=== PATIENT | male | born 1965 | race Caucasian/White ===

== ENCOUNTER 2020-04-23 21:05 | Inpatient (IN) ==
[2020-04-23] MEDS ORDERED: Aspirin 325 MG TABLET PO ONE (21:19)
[2020-04-23 21:31] LABS: Basophils # 0.1 K/mcL (0.0-0.2); Basophils % 0.7 %; Eosinophils # 0.5 K/mcL (0.0-0.6); Eosinophils % 6.3 %; Hematocrit 42.6 % (37.5-50.1); Immature Granulocytes % 0.2 % (0-4); Lymphocytes # 1.9 K/mcL (0.6-4.6); Lymphocytes % 22.6 %; Mean Corpuscular HGB Conc 32.9 g/dL (31.6-35.5); Mean Corpuscular Hemoglobin 30.2 pg (28.0-33.3); Mean Platelet Volume 9.3 fL (9.4-12.4); Monocytes # 0.7 K/mcL (0.0-1.3); Monocytes % 8.8 %; Neutrophils # 5.1 K/mcL (1.6-8.9); Platelet Count 251 K/mcL (140-400); Red Blood Count 4.63 M/mcL (4.19-5.50); Red Cell Distribution Width 15.6 % (11.5-14.5); Segmented Neutrophils % 61.4 %; White Blood Count 8.3 K/mcL (4.3-11.1)
[2020-04-23 21:48] LABS: BUN/Creatinine Ratio 12 (6-26); Blood Urea Nitrogen 12 mg/dL (6-20); Calcium 9.3 mg/dL (8.6-10.3); Carbon Dioxide 29 mEq/L (23-29); Chloride 97 mEq/L (98-107); Ethanol < 10 mg/dL (Less than 10); Glucose 95 mg/dL (70-105); Osmolality,Calculated 272 (280-300); Potassium 4.3 mEq/L (3.5-5.1); Sodium 131 mEq/L (136-145); eGFR For African Americans > 60 (> 60); eGFR For Non-African Americans > 60 (> 60)
[2020-04-23 21:51] LABS: Troponin I 0.05 ng/mL (< 0.04)
[2020-04-23] MEDS ORDERED: Isovue-370 500 ML BOTTLE IVP ONE (21:51)
[2020-04-23 22:32] LABS: Amphetamine Screen,Urine Negative ng/mL (Cutoff=1000); Barbiturate Screen,Urine Negative ng/mL (Cutoff=200); Benzodiazepines Screen,Urine Negative ng/mL (Cutoff=200); Cannabinoid Screen,Urine Positive ng/mL (Cutoff = 50); Cocaine Screen,Urine Negative ng/mL (Cutoff= 300); Opiate Screen,Urine Negative ng/mL (Cutoff=300); Phencyclidine Screen,Urine Negative ng/mL (Cutoff=25)
[2020-04-23] MEDS ORDERED: Naloxone 0.4 MG/ML INJ IVP PRN (23:23)
[2020-04-23] MEDS ORDERED: Acetaminophen 325 MG TABLET PO PRN (23:23)
[2020-04-23] MEDS ORDERED: Ondansetron 4 MG/2 ML VIAL IVP PRN (23:23)
[2020-04-23] MEDS ORDERED: Perflutren Lipid Microsphere 1.3 ML in 0.9 % Sodium Chloride 8.7 ML IVP PRN (23:26)
[2020-04-24] MEDS ORDERED: Nitroglycerin 0.4 MG TAB.SUBL SL PRN ×2 (00:14→00:41)
[2020-04-24] MEDS ORDERED: Ipratropium/Albuterol Neb 3 ML IH PRN (00:34)
[2020-04-24 03:50] LABS: Basophils # 0.1 K/mcL (0.0-0.2); Basophils % 0.9 %; Eosinophils # 0.6 K/mcL (0.0-0.6); Eosinophils % 9.1 %; Hemoglobin 13.7 g/dL (12.9-16.9); Immature Granulocytes % 0.2 % (0-4); Lymphocytes # 1.6 K/mcL (0.6-4.6); Lymphocytes % 25.3 %; Mean Corpuscular HGB Conc 33.4 g/dL (31.6-35.5); Mean Corpuscular Volume 92.8 fL (83.0-100.0); Mean Platelet Volume 9.3 fL (9.4-12.4); Monocytes # 0.5 K/mcL (0.0-1.3); Monocytes % 8.2 %; Neutrophils # 3.6 K/mcL (1.6-8.9); Platelet Count 220 K/mcL (140-400); Red Blood Count 4.42 M/mcL (4.19-5.50); Red Cell Distribution Width 15.6 % (11.5-14.5); Segmented Neutrophils % 56.3 %; White Blood Count 6.4 K/mcL (4.3-11.1)
[2020-04-24 04:13] LABS: BUN/Creatinine Ratio 15 (6-26); Blood Urea Nitrogen 11 mg/dL (6-20); Calcium 8.9 mg/dL (8.6-10.3); Carbon Dioxide 27 mEq/L (23-29); Chloride 100 mEq/L (98-107); Glucose 86 mg/dL (70-105); Magnesium 2.2 mg/dL (1.6-2.6); Osmolality,Calculated 275 (280-300); Potassium 4.1 mEq/L (3.5-5.1); Sodium 133 mEq/L (136-145); eGFR For African Americans > 60 (> 60); eGFR For Non-African Americans > 60 (> 60)
[2020-04-24] MEDS ORDERED: *HR* Heparin 5,000 UNIT/ML VIAL IVP PRN (04:51)
[2020-04-24] MEDS ORDERED: *HR* Heparin 5,000 UNIT/ML VIAL IVP ONE (04:51)
[2020-04-24 05:03] LABS: Hematocrit 40.8 % (37.5-50.1); Hemoglobin 13.7 g/dL (12.9-16.9); Mean Corpuscular HGB Conc 33.6 g/dL (31.6-35.5); Mean Corpuscular Hemoglobin 30.4 pg (28.0-33.3); Mean Corpuscular Volume 90.7 fL (83.0-100.0); Mean Platelet Volume 9.3 fL (9.4-12.4); Platelet Count 230 K/mcL (140-400); Red Cell Distribution Width 15.8 % (11.5-14.5); White Blood Count 6.4 K/mcL (4.3-11.1)
[2020-04-24 05:22] LABS: INR 1.1; Prothrombin Time 13.2 Seconds (9.4-12.1)
[2020-04-24 05:23] LABS: Heparin anti-factor XA UFH < 0.04 IU/mL (0.30-0.70)
[2020-04-24] MEDS: Heparin 25,000UNIT/250ML 1/2NS 25,000 UNIT/250 ML IV.SOLN IVC SCH (05:53)
[2020-04-24] MEDS ORDERED: *HR* Heparin 5,000 UNIT/ML VIAL SQ SCH (06:00)
[2020-04-24] MEDS: Finasteride 5 MG TABLET PO SCH (09:05)
[2020-04-24] MEDS: Aspirin 81 MG TAB.CHEW PO SCH (12:14)
[2020-04-24] MEDS: Methadone Oral Concentrate 50 MG/5 ML UDC PO SCH (12:14)
[2020-04-24] MEDS: Furosemide 20 MG/2 ML VIAL IVP SCH ×2 (12:14→18:08)
[2020-04-24] MEDS: predniSONE 20 MG TABLET PO SCH (18:09)
[2020-04-24] MEDS: Doxycycline 100 MG in 0.9 % Sodium Chloride Mini Bag 100 ML IVPB SCH (18:09)
[2020-04-24] MEDS: *HR* Heparin 5,000 UNIT/ML VIAL IVP PRN (18:54)
[2020-04-24] MEDS: Budesonide/Formoterol 160/4.5 1 PUFF INH IH SCH (19:26)
[2020-04-24] MEDS: Gabapentin 300 MG CAPSULE PO SCH (22:25)
[2020-04-25 00:37] LABS: Alanine Aminotransferase 13 Units/L (7-52); Albumin 3.7 g/dL (3.5-5.7); Albumin/Globulin Ratio 0.9 (1.1-2.2); Alkaline Phosphatase 126 Units/L (34-104); Aspartate Amino Transferase 17 Units/L (13-39); BUN/Creatinine Ratio 14 (6-26); Bilirubin,Direct 0.1 mg/dL (0.0-0.2); Bilirubin,Indirect 0.4 mg/dL (0.0-1.0); Bilirubin,Total 0.5 mg/dL (0.3-1.0); Blood Urea Nitrogen 12 mg/dL (6-20); Calcium 9.3 mg/dL (8.6-10.3); Carbon Dioxide 27 mEq/L (23-29); Chloride 93 mEq/L (98-107); Globulin 3.9 g/dL (2.4-3.5); Glucose 239 mg/dL (70-105); Magnesium 1.8 mg/dL (1.6-2.6); Osmolality,Calculated 274 (280-300); Potassium 4.2 mEq/L (3.5-5.1); Sodium 128 mEq/L (136-145); Total Protein 7.6 g/dL (6.4-8.9); eGFR For African Americans > 60 (> 60); eGFR For Non-African Americans > 60 (> 60)
[2020-04-25 00:38] LABS: Basophils % 0.3 %; Eosinophils % 0.6 %; Hematocrit 45.6 % (37.5-50.1); Immature Granulocytes % 0.1 % (0-4); Lymphocytes # 0.5 K/mcL (0.6-4.6); Lymphocytes % 7.9 %; Mean Corpuscular HGB Conc 32.9 g/dL (31.6-35.5); Mean Corpuscular Hemoglobin 29.9 pg (28.0-33.3); Mean Platelet Volume 9.6 fL (9.4-12.4); Monocytes # 0.1 K/mcL (0.0-1.3); Neutrophils # 6.2 K/mcL (1.6-8.9); Platelet Count 219 K/mcL (140-400); Red Blood Count 5.01 M/mcL (4.19-5.50); Red Cell Distribution Width 15.2 % (11.5-14.5); Segmented Neutrophils % 90.1 %; White Blood Count 6.9 K/mcL (4.3-11.1)
[2020-04-25 01:18] LABS: Estimated Average Glucose 120 mg/dl; Hemoglobin A1C 5.8 %
[2020-04-25] MEDS: Heparin 25,000UNIT/250ML 1/2NS 25,000 UNIT/250 ML IV.SOLN IVC SCH (04:27)
[2020-04-25] MEDS: Doxycycline 100 MG in 0.9 % Sodium Chloride Mini Bag 100 ML IVPB SCH ×2 (04:29→16:51)
[2020-04-25] MEDS: *HR* Heparin 5,000 UNIT/ML VIAL IVP PRN (07:29)
[2020-04-25] MEDS: Aspirin 81 MG TAB.CHEW PO SCH (07:37)
[2020-04-25] MEDS: Gabapentin 300 MG CAPSULE PO SCH (07:37)
[2020-04-25] MEDS: predniSONE 20 MG TABLET PO SCH (07:37)
[2020-04-25] MEDS: Finasteride 5 MG TABLET PO SCH (07:37)
[2020-04-25] MEDS: Furosemide 20 MG/2 ML VIAL IVP SCH ×2 (07:38→16:51)
[2020-04-25] MEDS: Budesonide/Formoterol 160/4.5 1 PUFF INH IH SCH (07:44)
[2020-04-25] MEDS: Methadone Oral Concentrate 50 MG/5 ML UDC PO SCH (07:58)
[2020-04-25] MEDS ORDERED: ISOVUE-370 200 ML INFUS..BTL ONE (11:46)
[2020-04-25] MEDS ORDERED: Nitroglycerin 1,000 MCG/10 ML VIAL IV ONE (11:46)
[2020-04-25] MEDS ORDERED: 0.9 % Sodium Chloride 2,000 ML ONE (11:46)
[2020-04-25] MEDS ORDERED: *HR* Heparin 10,000 UNIT/10 ML VIAL ONE (11:46)
[2020-04-25] MEDS ORDERED: Heparin 1,000 UNITS/500 mL 500 ML ONE (11:46)
[2020-04-25] MEDS ORDERED: *HR* Midazolam HCl 2 MG/2 ML VIAL ONE (11:54)
[2020-04-25] MEDS ORDERED: *HR* FentaNYL (PF) 100 MCG/2 ML VIAL ONE (11:54)
[2020-04-25 16:37] VITALS: BP 130/86
[2020-04-25] MEDS ORDERED: Isovue-370 500 ML BOTTLE IVP ONE (16:56)
== END 2020-04-26 05:00 | disposition left against medical advice (07) | DRG 190 ==
LOC: EMEROOARM 21:05 → 3BNU 21:05 → SUATTDRO 23:15 → 3BNU 23:56
PROVIDERS: ADMIT Pharmacist; ATTEND Registered Nurse